=== PATIENT | male | born 1965 | race Caucasian/White ===

== ENCOUNTER 2022-12-04 17:32 | Inpatient (IN) | payer MEDICAID, OTHER ==
[~2022-12-04] VITALS: Ht 180.3 cm; Wt 71.5 kg
[2022-12-04 18:09] LABS: Basophils # (auto) 0.1 10 ^3/uL (0-0.2); Basophils % (auto) 1.4 % (0.0-2.0); Eosinophils # (auto) 0.1 10 ^3/uL (0-0.8); Eosinophils % (auto) 2.4 % (0.0-7.0); Hematocrit 38.7 % (41.0-53.0); Hemoglobin 12.7 g/dL (13.5-17.5); Lymphocytes % (auto) 20.6 % (10.0-50.0); Mean Corpuscular Hemoglobin 28.9 pg (28.0-32.0); Mean Corpuscular Hgb Conc. 32.9 g/dL (32.0-36.0); Mean Corpuscular Volume 87.9 fL (80.0-100.0); Monocytes # (auto) 0.4 10 ^3/uL (0-1.3); Monocytes % (auto) 7.1 % (0.0-12.0); Neutrophils # (auto) 3.4 10 ^3/uL (1.6-8.6); Neutrophils % (auto) 68.5 % (37.0-80.0); Red Blood Cells 4.41 10^6/uL (4.5-5.90); Red Cell Distribution Width 14.2 % (11.8-14.3)
[2022-12-04 18:26] LABS: INR 1.04 (0.9-1.15); Partial Thromboplastin Time 27.8 SEC (24.5-34.5); Prothrombin Time 10.9 sec (9.3-11.8)
[2022-12-04 18:34] LABS: Albumin 3.6 g/dL (3.4-5.0); Calcium 9.1 mg/dL (8.5-10.1); Magnesium 2.5 mg/dL (1.6-2.6); Potassium 4.8 mmol/L (3.5-5.1)
[2022-12-04 18:37] LABS: Bilirubin, Total 0.3 mg/dL (0.2-1.0); Total Protein 7.7 g/dL (6.4-8.2)
[2022-12-04] MEDS ORDERED: SODIUM CHLORIDE 0.9% 500 ML IV ONE (19:30)
[2022-12-04] MEDS ORDERED: ONDANSETRON HCL 4 MG/2 ML VIAL IV ONE (19:30)
[2022-12-04] MEDS ORDERED: PANTOPRAZOLE 40 MG/10 ML VIAL INJ IV ONE (19:30)
[2022-12-04] MEDS ORDERED: ACETAMINOPHEN 325 MG TAB PO PRN (21:30)
[2022-12-04] MEDS ORDERED: SODIUM CHLORIDE 0.9% 1,000 ML IV SCH (21:30)
[2022-12-04] MEDS ORDERED: MORPHINE SULFATE INJ 2 MG/ml SYRG IV PRN (21:30)
[2022-12-04] MEDS ORDERED: NITROGLYCERIN 0.4 MG SL TAB SL PRN (21:30)
[2022-12-04 21:43] LABS: Cholesterol 147 mg/dL (< 200)
[2022-12-04] MEDS ORDERED: GAB100C PO (21:45)
[2022-12-04 21:47] LABS: HDL Cholesterol 53 mg/dL (40-59); LDL Cholesterol 85 mg/dL (< 100); Triglycerides 73 mg/dL (< 150)
[2022-12-05 00:48] VITALS: PULSE 78; RESP 20; O2SAT 96
[2022-12-05] MEDS: MORPHINE SULFATE INJ 2 MG/ml SYRG IV PRN ×2 (00:56→04:52)
[2022-12-05] MEDS: GABAPENTIN 100 MG CAP PO SCH ×4 (00:57→22:28)
[2022-12-05] MEDS: ATORVASTATIN 20 MG TAB PO SCH ×2 (00:57→22:23)
[2022-12-05] MEDS: SODIUM CHLORIDE 0.9% 1,000 ML IV SCH ×2 (01:55→13:37)
[2022-12-05 04:45] VITALS: PULSE 72; RESP 12; O2SAT 94
[2022-12-05 06:59] LABS: Basophils # (auto) 0 10 ^3/uL (0-0.2); Eosinophils # (auto) 0.2 10 ^3/uL (0-0.8); Eosinophils % (auto) 4.8 % (0.0-7.0); Hematocrit 38.3 % (41.0-53.0); Hemoglobin 12.3 g/dL (13.5-17.5); Lymphocytes # (auto) 1.5 10 ^3/uL (0.4-5.4); Lymphocytes % (auto) 30.4 % (10.0-50.0); Mean Corpuscular Hemoglobin 29.3 pg (28.0-32.0); Mean Corpuscular Hgb Conc. 32.1 g/dL (32.0-36.0); Mean Corpuscular Volume 91.3 fL (80.0-100.0); Monocytes # (auto) 0.4 10 ^3/uL (0-1.3); Monocytes % (auto) 8.5 % (0.0-12.0); Neutrophils # (auto) 2.7 10 ^3/uL (1.6-8.6); Neutrophils % (auto) 55.3 % (37.0-80.0); Nucleated Red Blood Cells % 0.2 %; White Blood Cell 4.9 10^3/uL (4.4-10.8)
[2022-12-05 07:31] LABS: Alanine Aminotransferase 67 U/L (16-61); Albumin 3.1 g/dL (3.4-5.0); Anion Gap 9 (5-15); Aspartate Aminotransferase 26 U/L (15-37); BUN/Creatinine Ratio 21.8 (10.0-20.0); Blood Urea Nitrogen 19 mg/dL (7-18); Calcium 8.3 mg/dL (8.5-10.1); Carbon Dioxide 24 mmol/L (21-32); Chloride 108 mmol/L (98-107); GFR African American 116 mL/min; GFR Non-African American 95 mL/min; Glucose 84 mg/dL (74-106); Potassium 4.4 mmol/L (3.5-5.1); Sodium 141 mmol/L (136-145)
[2022-12-05 07:34] LABS: Alkaline Phosphatase 133 U/L (45-117); Bilirubin, Total 0.4 mg/dL (0.2-1.0); Total Protein 6.6 g/dL (6.4-8.2)
[2022-12-05 08:00] VITALS: PULSE 67; RESP 11; O2SAT 96
[2022-12-05] MEDS ORDERED: ADENOSINE 59 MG in GIVE UN-DILUTED 0 ML IV ONE (08:15)
[2022-12-05] MEDS: ASPirin-EC 81 mg tab PO SCH (10:20)
[2022-12-05] MEDS: ENOXAPARIN SOD 40 MG/0.4 ML SYRINGE SC SCH (10:21)
[2022-12-05] MEDS: FUROSEMIDE 20 MG/2 ML VIAL IV SCH (10:21)
[2022-12-05] MEDS: HYDROcodone-ACET 5/325MG TAB PO PRN ×4 (10:21→22:23)
[2022-12-05] MEDS: PANTOPRAZOLE 40 MG/10 ML VIAL INJ IV SCH (10:21)
[2022-12-05 19:30] VITALS: PULSE 88; RESP 13; O2SAT 95
[2022-12-06] MEDS: SODIUM CHLORIDE 0.9% 1,000 ML IV SCH ×2 (02:21→12:13)
[2022-12-06 04:26] LABS: Urine Bacteria FEW /hpf (None Seen); Urine Blood Negative /uL (Negative); Urine Clarity HAZY (Clear); Urine Color Colorless (Yellow); Urine Mucus FEW (None Seen); Urine Protein, UAD TRACE (Negative); Urine Specific Gravity 1.008 (1.001-1.035); Urine Sperm PRESENT /hpf (None Seen); Urine Urobilinogen Normal (Negative); Urine WBC 6 /hpf (0 - 3); Urine pH 5.5 (5.0-8.0)
[2022-12-06] MEDS: HYDROcodone-ACET 5/325MG TAB PO PRN ×4 (05:00→22:05)
[2022-12-06] MEDS: GABAPENTIN 100 MG CAP PO SCH ×3 (06:09→22:04)
[2022-12-06] MEDS ORDERED: KETOROLAC TROMETH 30 MG/ML 1ML VIAL IV ONE (07:45)
[2022-12-06 08:17] VITALS: PULSE 75; RESP 19; O2SAT 97
[2022-12-06] MEDS: FUROSEMIDE 20 MG/2 ML VIAL IV SCH (08:37)
[2022-12-06] MEDS: ENOXAPARIN SOD 40 MG/0.4 ML SYRINGE SC SCH (08:37)
[2022-12-06] MEDS: ASPirin-EC 81 mg tab PO SCH (08:37)
[2022-12-06] MEDS: PANTOPRAZOLE 40 MG/10 ML VIAL INJ IV SCH (08:37)
[2022-12-06] MEDS: SACUBITRIL-VALSARTAN 24mg/26mg TAB PO SCH ×2 (08:42→22:04)
[2022-12-06] MEDS: SPIRONOLACTONE 25 MG TAB PO SCH (08:42)
[2022-12-06] MEDS: CARVEDILOL 3.125 MG TAB PO SCH ×2 (08:43→22:00)
[2022-12-06 20:46] VITALS: PULSE 98; RESP 18; O2SAT 97
[2022-12-06 21:04] VITALS: BP 103/59; PULSE 98; RESP 18; TEMP 97.9; O2SAT 97
[2022-12-06] MEDS ORDERED: ASPI-628 PO (21:27)
[2022-12-06 22:00] VITALS: BP 103/59; PULSE 87; RESP 18; TEMP 97.9; O2SAT 98
[2022-12-06] MEDS: ATORVASTATIN 20 MG TAB PO SCH (22:04)
[2022-12-07 05:00] VITALS: BP 103/74; PULSE 77; RESP 20; TEMP 97.9; O2SAT 94
[2022-12-07] MEDS: HYDROcodone-ACET 5/325MG TAB PO PRN ×2 (05:05→18:38)
[2022-12-07] MEDS: GABAPENTIN 100 MG CAP PO SCH ×2 (05:05→14:17)
[2022-12-07] MEDS: SODIUM CHLORIDE 0.9% 1,000 ML IV SCH (05:07)
[2022-12-07] MEDS ORDERED: EMPAGLIFLOZIN 10 MG TAB PO SCH (07:00)
[2022-12-07 08:00] VITALS: PULSE 66; PULSE 67; RESP 18; O2SAT 97
[2022-12-07 09:15] VITALS: BP 147/93; PULSE 86; RESP 18; TEMP 98; O2SAT 97
[2022-12-07] MEDS: ASPirin-EC 81 mg tab PO SCH (09:35)
[2022-12-07] MEDS: PANTOPRAZOLE 40 MG/10 ML VIAL INJ IV SCH (09:36)
[2022-12-07] MEDS: SACUBITRIL-VALSARTAN 24mg/26mg TAB PO SCH (09:36)
[2022-12-07] MEDS: SPIRONOLACTONE 25 MG TAB PO SCH (09:36)
[2022-12-07] MEDS: FUROSEMIDE 20 MG/2 ML VIAL IV SCH (09:36)
[2022-12-07] MEDS: CARVEDILOL 3.125 MG TAB PO SCH (09:36)
[2022-12-07] MEDS: ENOXAPARIN SOD 40 MG/0.4 ML SYRINGE SC SCH (09:37)
[2022-12-07 13:00] VITALS: BP 104/63; PULSE 81; RESP 18; TEMP 97.6; O2SAT 91
[2022-12-07 16:34] VITALS: BP 105/67; PULSE 88; RESP 18; TEMP 97.4; O2SAT 96
[2022-12-07 17:45] VITALS: BP 105/67; PULSE 88; RESP 18; TEMP 97.4; O2SAT 96
== END 2022-12-07 18:54 | disposition home or self-care (01) | DRG 198 ==
LOC: EDBD 17:32 → ER 17:32 → TELE 21:25 → TELE-CENTR 12-06 19:38
PROVIDERS: ADMIT Internal Medicine; ATTEND Internal Medicine
DX: I24.9 Acute ischemic heart disease, unspecified (principal); I42.0 Dilated cardiomyopathy; I50.20 Unspecified systolic (congestive) heart failure; I25.10 Atherosclerotic heart disease of native coronary artery without angina pectoris; I44.7 Left bundle-branch block, unspecified; Z95.5 Presence of coronary angioplasty implant and graft; Z87.891 Personal history of nicotine dependence; S42.022A Displaced fracture of shaft of left clavicle, initial encounter for closed fracture; R07.89 Other chest pain; V86.95XA Unspecified occupant of 3- or 4- wheeled all-terrain vehicle (ATV) injured in nontraffic accident, initial encounter; Y93.89 Activity, other specified; Y92.89 Other specified places as the place of occurrence of the external cause; Y99.8 Other external cause status
CPT/HCPCS: 36415; 71045; 78452; 80053; 80061; 81001; 83735; 83880; 84443; 84484; 85025; 85610; 85730; 93005; 93017; 93306; C9113; G0378; J0153; J1885; J2405